=== PATIENT | female | born 1995 | race Caucasian/White ===

== ENCOUNTER → 2019-12-31 | Outpatient (CLI) | payer OTHER ==
[~2019-12-31] MED LIST: BIOT5TAB PO
== END | disposition home or self-care (01) ==
LOC: LAB 14:05
PROVIDERS: ATTEND Obstetrics & Gynecology
DX: Z01.812 Encounter for preprocedural laboratory examination (principal); Z20.828 Contact with and (suspected) exposure to other viral communicable diseases
CPT/HCPCS: U0003-CS

== ENCOUNTER 2020-01-03 10:35 | Day surgery (SDC) | payer OTHER ==
[~2020-01-03 10:35] MED LIST changes: -BIOT5TAB PO; +DEXAMETHASONE SOD PHOS 4 MG/ML VIAL ONE; +HYDROmorphone 2 MG/ML VIAL IV PRN; +IV RINGERS,LACTATED 1000ML 1,000 ML IV SCH; +LIDOCAINE 1%/EPI 1:100,000 20 ML VIAL. ONE; +LIDOCAINE 2% PF 5 ML VIAL. ONE; +MIDAZOLAM HCL/PF 2 MG/2 ML VIAL. ONE; +MORPHINE SULFATE 2 MG/ML VIAL. IV PRN; +ONDANSETRON PF 4 MG/2 ML VIAL. IV PRN; +ONDANSETRON PF 4 MG/2 ML VIAL. ONE; +PROCHLORPERAZINE 10 MG/2 ML VIAL. IV PRN; +PROPOFOL 10 MG/ML (20ML) VIAL. IV ONE; +SILVER NITRATE STICK TP ONE; +ceFAZolin SODIUM IV Push 1 GM VIAL. IVP PRN; +fentaNYL PF VIAL 100 MCG/2 ML VIAL IV PRN; +fentaNYL PF VIAL 100 MCG/2 ML VIAL ONE
[2020-01-03] MEDS ORDERED: BIOT5TAB PO (11:03)
[2020-01-03 11:33] LABS: PREG TEST PT QUAL NEGATIVE (NEG)
[2020-01-03] MEDS ORDERED: KETOROLAC 30 MG/ML VIAL. ONE (11:58)
[2020-01-03] MEDS ORDERED: GLYCOPYRROLATE 1 MG/5 ML VIAL. ONE (12:00)
--- NOTE | 2020-01-03 12:15 | PDOC ---
BRIEF OPERATIVE NOTE Date: Jan 03, 2020 Pre-Op Diagnosis Imperforate Hymen Post-Op Diagnosis SAme Procedure Performed Hymenectomy Surgeon Dr. Keller Shuttle [employer] Support Analyst: Honorio Anesthesia Type: General Blood Loss 10 ml Specimens Obtained vaginal mucosa Findings imperforate hymen Complications none Operative Note see dictation KING KELLER Jr, MD Jan 03, 2020 12:15
--- NOTE | 2020-01-03 12:17 | DISCH ---
DISCHARGE INSTRUCTIONS Condition on Discharge Condition on Discharge: Stable Activity After Discharge Activity Instructions for Disc: Activity as tolerated Driving Instructions after Dis: Do not drive today Weight Bearing Status after Di: No restrictions Diet after Discharge Diet after Discharge: Regular Contacting the [facility]Bak[facility] after DC Call your doctor for: Concerns you may have Follow-Up Follow up with: Dr. Keller in 1 wk KING KELLER Jr, MD Jan 03, 2020 12:17
--- NOTE | 2020-01-03 12:26 | OP ---
DATE OF SURGERY: PREOPERATIVE DIAGNOSIS: Imperforate hymen. POSTOPERATIVE DIAGNOSIS: Imperforate hymen. PROCEDURE: Hymenectomy. SURGEON: King Keller MD. [employer] MACHINE FEEDER: Honorio. ANESTHESIA: GETA. ESTIMATED BLOOD LOSS: 10 mL. COMPLICATIONS: None. FINDINGS: Imperforate hymen. 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 The patient was evaluated in clinic and found to have an imperforate hymen. She was counseled on risks, benefits and expectations of hymenectomy with the possibility of vaginal septum removal as well and voiced clear understanding to proceed. DESCRIPTION OF PROCEDURE: The patient was taken to surgery suite and placed in dorsal lithotomy position, was prepped with Betadine solution and draped in sterile fashion. After adequate anesthesia, the vulva was evaluated. The imperforate hymen was present. There was partial hymenectomy involving the right side of the hymen, which was removed with scalpel and repaired with 3-0 chromic in a running fashion. The remainder of the vaginal vault was explored with speculum exam. The cervix was visualized and appeared normal. There did not appear any duplication of cervix or any evidence of vaginal septum. The area was hemostatic. The patient tolerated the procedure well and was taken to recovery room in stable condition. Lidocaine 1% with epinephrine was injected along the right side of the hymenal ring prior to excision of that portion of the hymenal ring. Sponge and needle count correct x 3. KING KELLER MD DR: CIARA/va JOB#: [id number] / [id number]
[2020-01-03 13:03] VITALS: BP 114/70
[2020-01-03] MEDS ORDERED: IBUPROFEN 400 MG TABLET. PO ONE (13:15)
== END 2020-01-03 14:02 | disposition home or self-care (01) ==
LOC: SURG 10:35 → EDUNIT# 12:45 → SURG 14:02
PROVIDERS: ATTEND Obstetrics & Gynecology
DX: N94.6 Dysmenorrhea, unspecified (principal); Q25.3 Supravalvular aortic stenosis
CPT/HCPCS: 36415; 56700; 84703; J0690; J1100; J1885; J2250; J2405; J2704; J3010; J3490